=== PATIENT | female | born 1985 | race Caucasian/White ===

== ENCOUNTER 2025-01-27 22:25 | Emergency (ER) | payer SELFPAY ==
[~2025-01-27] VITALS: Ht 175.3 cm; Wt 62.0 kg
[2025-01-27 22:28] VITALS: BP 112/66; PULSE 86; RESP 16; TEMP 37; O2SAT 97
== END 2025-01-28 03:39 | disposition home or self-care (01) ==
LOC: ER 22:25
DX: F10.129 Alcohol abuse with intoxication, unspecified (principal); Y90.8 Blood alcohol level of 240 mg/100 ml or more
CPT/HCPCS: 80320; 36415; 99283; Z7610; G0480